=== PATIENT | male | born 1965 | race Caucasian/White ===

== ENCOUNTER 2018-11-23 12:44 | Outpatient (CLI) | payer BC ==
--- NOTE | 2018-11-23 13:01 | RAD ---
Lateral neutral, flexion, and extension imaging of the lumbar spine: 11/23/2018 HISTORY: Back pain FINDINGS: No frontal imaging is provided. 5 lumbar type vertebral bodies are suspected. On the neutra l radiograph there is mild anterolisthesis at the L5-S1 level measuring approximately 6 mm. On extension this anterolisthesis is no longer seen and on flexion this anterolisthesis measures approxi mately 7 mm. There is facet hypertrophy at L4-5 and L5-S1. No acute fracture is seen. IMPRESSION: Mild anterolisthesis of L5 on S1, most prominent upon flexion. Multilevel lower lumbar sp ine facet hypertrophy.
== END 2018-11-23 12:45 | disposition home or self-care (01) ==
LOC: TBSIIMAG 12:44
PROVIDERS: ATTEND Neurological Surgery
DX: M54.5 Low back pain (principal); M47.816 Spondylosis without myelopathy or radiculopathy, lumbar region; M43.17 Spondylolisthesis, lumbosacral region
CPT/HCPCS: 72100

== ENCOUNTER 2019-01-15 06:45 | Outpatient (CLI) | payer BC ==
[2019-01-15 12:51] LABS: Hemoglobin 14.4 g/dL (14.0-18.0); Mean Corpuscular HGB CONC 33.1 g/dL (32.0-36.0); Mean Corpuscular Volume 96.5 fL (78.0-98.0); Platelet Count 399 thou/uL (130-400); RBC Distribution Width 12.3 % (11.5-14.5); Red Blood Cell (RBC) Count 4.49 mill/uL (4.70-6.10); White Blood Cell (WBC) Count 6.5 thou/uL (4.8-10.8)
[2019-01-15 12:57] LABS: PTT 27.7 SEC (22.9-36.1); Prothrombin Time 12.8 SEC (12.0-14.7)
[2019-01-15 13:19] LABS: Anion Gap 11 mmol/L (10-20); BUN (Urea Nitrogen) 29 mg/dL (8.4-25.7); Calc. Creatinine Clearance 0 mL/min (70-130); Calcium 9.7 mg/dL (7.8-10.44); Carbon Dioxide 27 mmol/L (22-29); Chloride 105 mmol/L (98-107); Estimated GFR-MDRD 77; Glucose 91 mg/dL (70-105); Potassium 5.1 mmol/L (3.5-5.1); Sodium 138 mmol/L (136-145)
--- NOTE | 2019-01-17 16:23 | EKG ---
Test Reason : Blood Pressure : / mmHG Vent. Rate : 067 BPM Atrial Rate : 067 BPM P-R Int : 150 ms QRS Dur : 078 ms QT Int : 418 ms P-R-T Axes : 051 037 057 degrees QTc Int : 441 ms Normal sinus rhythm Normal ECG No previous ECGs available Confirmed by DR. Kristin PETERSON ([id number]) on 01/17/2019 4:23:36 PM Referred By: [facility] Confirmed By:DR. Kristin PETERSON
== END 2019-01-15 06:46 | disposition home or self-care (01) ==
LOC: LABBT 06:45
PROVIDERS: ATTEND Neurological Surgery
DX: Z01.818 Encounter for other preprocedural examination (principal); M51.26 Other intervertebral disc displacement, lumbar region
CPT/HCPCS: 80048; 85027; 85610; 85730; 93005; 93010

== ENCOUNTER 2019-01-21 10:40 | Day surgery (SDC) | payer BC ==
[2019-01-15 11:57] VITALS: BMI 26.4
--- NOTE | 2019-01-20 17:59 | HP ---
HISTORY OF PRESENT ILLNESS: This is a 53-year-old male, who reports to our office for evaluation of low back and right leg pain. The patient states that he has had symptoms. It started shortly after his heart attack with bypass and during cardiac rehab. The patient states no longer he stands or walks, so more or less that the pain radiates down his leg. He has burning aching, numbness, and tingling. He describes that starting in his glutes and thighs into the lower leg and foot. The patient denies pain on the left side, and states that he is unable to stand or walk for more than 10 to 15 minutes, sitting or leaning helped significantly. The patient has seen Dr. aSmuel for injections, which have helped. The patient states that he uses ice, which helped some. No physical therapy at this time. He takes tramadol, gabapentin. He has brisk reflexes. Balance is okay. He has numbs on his left hand following the surgery from bypass graft. REVIEW OF SYSTEMS: A 10-point review of systems has been completed and is negative other than stated in the above HPI. PAST MEDICAL HISTORY: Allergies, hyperlipidemia, chronic pain, depression, heart disease, hypertension, history of accident. PAST SURGICAL HISTORY: Heart attack, bypass, 5-vessel. FAMILY HISTORY: Father . Mother , diagnosed with heart disease. SOCIAL HISTORY: Nonsmoker. Denies alcohol or drug use. ALLERGIES: SULFA. PHYSICAL EXAMINATION: CONSTITUTIONAL: The patient is a well-appearing, well-nourished, alert. RESPIRATIONS: Normal work of breathing on room air. NEUROLOGIC: Alert and oriented x3. Speech spontaneous and fluent. Normal fund of knowledge. Cranial nerves grossly intact. Lower extremities, 5/5 bilateral strength in hip flexion, knee flexion, knee extension, dorsiflexion, plantar flexion, EHL. No radiculopathy. Negative single leg raise bilaterally. Hip rotation normal bilaterally. Tender to palpate lumbar spine. Deep tendon reflexes brisk bilaterally. Negative Babinski. 3+ clonus. Sensory; decreased sensation on top of both feet, medial lower leg and lateral lower leg. Gait and station, sit to standing normal. Normal gait. Tandem acceptable, walk normal. IMAGING STUDIES: MRI lumbar spine degenerative changes, multiple level; bulging disks at T11-T12; L4-L5 herniated nucleus pulposus with compression, right greater than left. ASSESSMENT AND PLAN: Lumbar back pain; lumbar radicular pain; herniated nucleus pulposus, lumbar region. Dr. Hook has offered surgery, L4-L5 laminectomy, diskectomy. The patient states that he understands the risks and is willing to proceed with surgery. Job ID: [id number]
[~2019-01-21 10:40] MED LIST: Glycopyrrolate 0.2 MG/ML 5 ML SYRINGE ONE; Lidocaine 1% PF 5 ML VIAL ONE; Ondansetron PF 4 MG/2 ML Vial ONE; PHENYLEPHRINE-NS 100 MCG/ML 10 ML SYRINGE ONE; PROPOFOL 200 MG/20 ML VIAL ONE; Rocuronium Bromide 10 MG/ML (10ML VIAL) ONE; ePHEDrine/0.9% NaCl/PF SYRINGE 50 mg/10 ml ONE
[2019-01-21] MEDS ORDERED: Fentanyl 100 MCG/2 ML VIAL ONE ×3 (11:47→16:32)
[2019-01-21] MEDS ORDERED: Thrombin 5000 UNITS/5 ML VIAL ONE (13:19)
[2019-01-21] MEDS ORDERED: Sodium Chloride 0.9% 10 ML ONE (13:19)
[2019-01-21] MEDS ORDERED: Bupivacaine PF 0.5% 30 ML VIAL ONE (13:19)
[2019-01-21] MEDS ORDERED: Rocuronium Bromide 50 MG/5 ML VIAL ONE (14:52)
[2019-01-21] MEDS ORDERED: Phenylephrine HCL 10 MG/ML VIAL ONE (14:52)
--- NOTE | 2019-01-21 16:36 | OP ---
DATE OF PROCEDURE: 01/21/2019 BAKER SECOND: Zoraida Armando PA-C. PREOPERATIVE INDICATION: Prevent neurological deterioration, treat pain. PREOPERATIVE DIAGNOSIS: Lumbar intervertebral disk disease with lateral recess stenosis, foraminal stenosis, and radiculopathy, right L4-L5. POSTOPERATIVE DIAGNOSIS: Lumbar intervertebral disk disease with lateral recess stenosis, foraminal stenosis, and radiculopathy, right L4-L5. PROCEDURES PERFORMED: Right L4-L5 partial hemilaminectomy, medial facetectomy, foraminotomy and microdiskectomy, operating microscope. PREOPERATIVE MEDICATION: Ancef 2 g IV. DRAIN NUMBER: Zero. DRAIN TYPE: None. DESCRIPTION OF PROCEDURE: The patient was brought to the operating room. General endotracheal anesthesia was induced. The patient was positioned prone on the operating table with his chest and hips supported by gel-filled chest rolls. A lateral fluoro radiograph was used to plan our incision. The lumbar skin was sterilely prepped and draped. We made our incision in the midline and controlled bleeding with bipolar cautery. We used monopolar cautery to dissect through subcutaneous tissues to the thoracodorsal fascia. The fascia was incised to the right of the midline and the paraspinal muscles were reflected off the spinous process lamina of L4 and L5 on the right. A lateral fluoro radiograph confirmed the levels upon which we were operating. We then used Kerrison rongeur to fashion a partial hemilaminectomy and medial facetectomy. We brought the operating microscope into the field. Under microscopic magnification and using microsurgical techniques, we removed the yellow ligament in piecemeal fashion. We performed medial facetectomy. We identified the common thecal sac in the L4 and L5 nerve roots. At the L4-L5 interspace, there was a right-sided intervertebral disk protrusion and a small herniation in the foramen. We protected the dura and gently incised the disk. Multiple loose fragments of disk were removed from under a fibrotic covering. We reduced some disk material back into the disk space and swept it laterally and medially in the canal and in the foramen respectively. These loose fragments were removed as well. Finally, we used a Armstrong ball probe through the foramen with the nerve root and found that was widely decompressed now. In a similar fashion, we passed a Armstrong ball probe through the lateral recess at L4-L5 and out the L5 foramina and that nerve was no longer stretched either. We irrigated copiously with bacitracin irrigation. We waxed the bone edges. We infused local anesthetic in the paraspinal muscles. We closed the wound in anatomical layers and we applied a sterile dressing. This was a clean case, no contamination. Job ID: [id number]
[2019-01-21] MEDS ORDERED: diphenhydrAMINE 50 MG/ML VIAL ONE (16:47)
[2019-01-21] MEDS ORDERED: HYDROcodone/Acetaminophen 5/325 mg Tablet ONE ×2 (16:58→19:10)
== END 2019-01-21 19:42 | disposition home or self-care (01) ==
LOC: SDC 10:40
PROVIDERS: ATTEND Neurological Surgery
PROC: 01NB0ZZ Release Lumbar Nerve, Open Approach (ICD-10-PCS; principal; 2019-01-21)
DX: M48.061 Spinal stenosis, lumbar region without neurogenic claudication (principal); M51.16 Intervertebral disc disorders with radiculopathy, lumbar region; I10 Essential (primary) hypertension; I25.10 Atherosclerotic heart disease of native coronary artery without angina pectoris; E78.5 Hyperlipidemia, unspecified; F41.9 Anxiety disorder, unspecified; F32.9 Major depressive disorder, single episode, unspecified; Z79.899 Other long term (current) drug therapy; Z88.2 Allergy status to sulfonamides; Z95.1 Presence of aortocoronary bypass graft
CPT/HCPCS: 76000; J0690; J1200; J2001; J2370; J2405; J2704; J3010; J3370; J3490; S0020